=== PATIENT | male | born 1965 | race Caucasian/White ===

== ENCOUNTER 2016-12-11 07:52 | Emergency (ER) ==
[2016-12-11 07:59] VITALS: BP 148/92; TEMP 99; BMI 30.8
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
== END 2016-12-11 09:13 | disposition home or self-care (01) ==
LOC: ED 07:52
DX: S22.31XA Fracture of one rib, right side, initial encounter for closed fracture (principal)
CPT/HCPCS: 99283